=== PATIENT | male | born 1985 | race Caucasian/White ===

== ENCOUNTER 2019-01-11 02:21 | Emergency (ER) | payer OTHER ==
[~2019-01-11] VITALS: Ht 180.3 cm; Wt 97.0 kg
[~2019-01-11 02:21] MED LIST: NO HOME MEDS
[2019-01-11 02:30] VITALS: BP 140/81
[2019-01-11 03:03] LABS: CLARITY,URINE CLOUDY (Clear); COLOR,URINE YELLOW (Yellow); GLUCOSE, URINE NEGATIVE (Neg); KETONES,URINE NEGATIVE (Neg); LEUKOCYTE ESTERASE ,URINE SMALL (Neg); NITRITES, URINE NEGATIVE (Neg); OCCULT BLOOD,URINE SMALL (Neg); PROTEIN,URINE TRACE mg/dl (Neg); UROBILINOGEN,URINE 0.2 E.U/dL (0.2-1.0)
[2019-01-11 03:06] LABS: UA COLLECTION TYPE CLN CATCH MIDSTREAM
[2019-01-11 03:08] LABS: RBC,URINE 0-2 /HPF (0-2); WBC,URINE TNTC /HPF (0-4)
[2019-01-11 03:09] LABS: BACTERIA,URINE FEW /HPF (Neg); SPERM FEW /HPF (NEGATIVE); SQUAMOUS EPITHELIAL CELL,UR FEW /LPF (FEW)
[2019-01-11] MEDS ORDERED: SULF1TAB49 PO (03:11)
[2019-01-11] MEDS ORDERED: sulfamethoxazole/trimethoprim DS (800/160mg) tablet PO ONE (03:15)
== END 2019-01-11 03:21 | disposition home or self-care (01) ==
LOC: ER 02:21
DX: N39.0 Urinary tract infection, site not specified (principal); Z79.899 Other long term (current) drug therapy
CPT/HCPCS: 81001; 87088; 99283

== ENCOUNTER 2019-01-23 19:28 | Emergency (ER) | payer SELFPAY ==
[~2019-01-23] VITALS: Ht 180.3 cm; Wt 103.9 kg
[2019-01-23 19:33] VITALS: BP 143/64
--- NOTE | 2019-01-23 20:14 | NUR ---
provider ordered U/A, hold d/c
[2019-01-23 20:21] LABS: CLARITY,URINE SLIGHTLY CLOUDY (Clear); COLOR,URINE YELLOW (Yellow); GLUCOSE, URINE NEGATIVE (Neg); KETONES,URINE NEGATIVE (Neg); LEUKOCYTE ESTERASE ,URINE LARGE (Neg); NITRITES, URINE NEGATIVE (Neg); OCCULT BLOOD,URINE TRACE-LYSED (Neg); PROTEIN,URINE NEGATIVE (Neg); UROBILINOGEN,URINE 0.2 E.U/dL (0.2-1.0)
[2019-01-23 20:23] LABS: UA COLLECTION TYPE CLN CATCH MIDSTREAM
[2019-01-23 20:29] LABS: BACTERIA,URINE NONE SEEN /HPF (Neg); RBC,URINE NONE SEEN /HPF (0-2); WBC,URINE 50-100 /HPF (0-4)
[2019-01-23 20:30] LABS: MUCUS STRANDS NONE SEEN /LPF (Neg); SQUAMOUS EPITHELIAL CELL,UR NONE SEEN /LPF (FEW)
[2019-01-23] MEDS ORDERED: DOXY100C43 PO (20:48)
[2019-01-23] MEDS ORDERED: CefTRIAXone 1000mg IM Kit (w/lidocaine diluent) IM ONE (20:50)
== END 2019-01-23 21:17 | disposition home or self-care (01) ==
LOC: ER 19:28
DX: N39.0 Urinary tract infection, site not specified (principal); Z87.442 Personal history of urinary calculi; Z79.899 Other long term (current) drug therapy
CPT/HCPCS: 36415; 81001; 87088; 87491; 87591; 96372; 99283; J0696